=== PATIENT | male | born 1960 | race Caucasian/White ===

== ENCOUNTER 2019-04-11 08:27 | Outpatient (REF) | payer OTHER, SELFPAY ==
[2019-04-11 11:54] LABS: ALT 31 U/L (16-63); AST 18 U/L (15-37); Albumin 3.9 g/dL (3.4-5.0); Alkaline Phosphatase 75 U/L (46-116); Anion Gap 10.8 mmol/L (3-11); BUN 25 mg/dL (7-18); Bilirubin, Total 0.7 mg/dL (0.2-1.0); CO2 26.2 mmol/L (21.0-32.0); CREATININE 1.15 mg/dL (0.70-1.30); Calcium 9.2 mg/dL (8.5-10.1); Calculated LDL 80 mg/dL; Chloride 105 mmol/L (98-107); Cholesterol 154 mg/dL (<200); Glucose 121 mg/dL (74-106); HDL Cholesterol 30 mg/dL (40-60); Sodium 142 mmol/L (136-145); Triglyceride 221 mg/dL (<150)
[2019-04-11 13:02] LABS: Hemoglobin A1C 5.6 % (4.5-6.2)
== END 2019-04-11 08:47 ==
LOC: NCHCN 08:27
PROVIDERS: PCP Nurse Practitioner; Referring Provider Nurse Practitioner; Visit Provider Nurse Practitioner
DX: R73.9 Hyperglycemia, unspecified (principal); I10 Essential (primary) hypertension
CPT/HCPCS: 80053; 80061; 83036

== ENCOUNTER 2021-06-17 11:24 | Outpatient (REF) | payer OTHER, SELFPAY ==
[2021-06-17 14:09] LABS: Anion Gap 11.1 mmol/L (3-11); BUN 23 mg/dL (7-18); CO2 25.9 mmol/L (21.0-32.0); CREATININE 1.1 mg/dL (0.70-1.30); Calcium 9.2 mg/dL (8.5-10.1); Chloride 104 mmol/L (98-107); Glucose 101 mg/dL (74-106); Sodium 141 mmol/L (136-145)
[2021-06-17 14:10] LABS: Hemoglobin A1C 5.5 % (<5.7)
== END 2021-06-17 11:25 | disposition home or self-care (01) ==
LOC: NCHCN 11:24
PROVIDERS: PCP Nurse Practitioner; Visit Provider Nurse Practitioner Family
DX: I10 Essential (primary) hypertension (principal); R73.09 Other abnormal glucose
CPT/HCPCS: 80048; 83036

== ENCOUNTER 2024-01-07 17:43 | Outpatient (REF) | payer BC, SELFPAY ==
[2024-01-07 18:40] LABS: ALT 34 U/L (16-63); AST 22 U/L (15-37); Albumin 3.9 g/dL (3.4-5.0); Alkaline Phosphatase 82 U/L (46-116); Anion Gap 9.2 mmol/L (3-11); BUN 23 mg/dL (7-18); Bilirubin, Total 0.59 mg/dL (0.2-1.0); CO2 28.8 mmol/L (21.0-32.0); CREATININE 1.1 mg/dL (0.70-1.30); Calcium 8.9 mg/dL (8.5-10.1); Calculated LDL 69 mg/dL (<100); Chloride 102 mmol/L (98-107); Cholesterol 153 mg/dL (<200); Glucose 108 mg/dL (74-106); HDL Cholesterol 31 mg/dL (40-60); Magnesium 2.3 mg/dL (1.8-2.4); Potassium 3.6 mmol/L (3.5-5.1); Sodium 140 mmol/L (136-145); Total Protein 7.1 g/dL (6.4-8.2); Triglyceride 267 mg/dL (<150)
== END 2024-01-07 17:44 | disposition home or self-care (01) ==
LOC: NCHCN 17:43
PROVIDERS: Visit Provider Student in an Organized Health Care Education/Training Program
DX: I10 Essential (primary) hypertension (principal); Z13.220 Encounter for screening for lipoid disorders
CPT/HCPCS: 80053; 80061; 83735

== ENCOUNTER 2025-01-24 17:46 | Outpatient (REF) | payer BC, SELFPAY ==
[2025-01-24 16:02] LABS: Abs Immature Grans 0.07 10^3/uL (0.0-0.06); HCT 44.7 % (40.0-50.0); HGB 15.8 g/dL (13.5-17.5); Immature Grans % 1.0 %; MCH 29.6 pg (27.0-33.0); MCHC 35.3 % (32.0-36.0); MCV 84 fL (80-95); MPV 9.8 fL (8.0-11.0); Platelet Count 261 10^3/uL (130-400); RBC 5.34 10^6/uL (4.36-5.78); RDW 12.9 % (11.8-14.1); RDW-SD 39.0 fL; WBC 6.99 10^3/uL (4.4-10.8)
[2025-01-24 16:22] LABS: Anion Gap 10.9 mmol/L (3-11); BUN 12 mg/dL (7-18); CO2 28.1 mmol/L (21.0-32.0); Calcium 9.3 mg/dL (8.5-10.1); Chloride 101 mmol/L (98-107); Estimated GFR 74.04 (mL/min/1.73m2); Glucose 146 mg/dL (74-106); Magnesium 2.2 mg/dL (1.8-2.4); Potassium 3.6 mmol/L (3.5-5.1); Sodium 140 mmol/L (136-145)
[2025-01-24 16:32] LABS: Hemoglobin A1C 5.6 % (<5.7)
== END 2025-01-24 17:47 | disposition home or self-care (01) ==
LOC: NCHCN 17:46
PROVIDERS: Visit Provider Student in an Organized Health Care Education/Training Program
DX: I10 Essential (primary) hypertension (principal); Z13.1 Encounter for screening for diabetes mellitus
CPT/HCPCS: 80048; 83036; 83735; 85025